=== PATIENT | female | born 1980 | race Asian ===

== ENCOUNTER 2016-05-24 08:29 | Inpatient (IN) | payer OTHER ==
[~2016-05-24] VITALS: Ht 160 cm; Wt 68.3 kg
[2016-05-24] MEDS ORDERED: LACTATED RINGERS 1,000 ML IV SCH ×2 (10:14→10:20)
[2016-05-24] MEDS ORDERED: OXYTOCIN 30U/ 0.9% NaCL 500ML 500 ML IV SCH (10:14)
[2016-05-24] MEDS ORDERED: METOCLOPRAMIDE 5 MG/ML, 2ML IV ONE (10:30)
[2016-05-24] MEDS ORDERED: LACTATED RINGERS 1,000 ML IVBOLUS ONE (10:30)
[2016-05-24] MEDS ORDERED: SODIUM CITRATE/CITRIC ACID 30 ML UDC PO ONE (10:30)
[2016-05-24] MEDS ORDERED: PLEASE ENTER HEIGHT AND WEIGHT MC SCH (10:30)
[2016-05-24 10:43] VITALS: BP 111/71
[2016-05-24 10:44] LABS: HEMOGLOBIN 12.1 g/dL (11.7-16.4)
[2016-05-24] MEDS ORDERED: CALC-123 PO (10:53)
[2016-05-24] MEDS ORDERED: FERR325T16 PO (10:53)
[2016-05-24] MEDS ORDERED: PREN1TAB60 PO (10:53)
[2016-05-24] MEDS ORDERED: LEVO50TA5 PO (10:53)
[2016-05-24] MEDS ORDERED: GLYB5TAB3 PO (10:53)
[2016-05-24] MEDS ORDERED: NEWBORN KIT ONE (11:14)
[2016-05-24] MEDS ORDERED: SODIUM CITRATE/CITRIC ACID 30 ML UDC ONE (11:14)
[2016-05-24] MEDS ORDERED: METOCLOPRAMIDE 5 MG/ML, 2ML ONE ×2 (11:14→12:10)
[2016-05-24] MEDS ORDERED: OXYTOCIN 30U/ 0.9% NaCL 500ML 500 ML ONE (11:15)
[2016-05-24] MEDS ORDERED: FENTANYL PF 100 MCG/2ML ONE (11:40)
[2016-05-24] MEDS ORDERED: EPHEDRINE 50 MG/ML, 1ML IVPush PRN (12:00)
[2016-05-24] MEDS ORDERED: MIDAZOLAM 1 MG/ML, 2ML IV PRN (12:00)
[2016-05-24] MEDS ORDERED: ONDANSETRON 2MG/ML, 2ML IVPush PRN (12:00)
[2016-05-24] MEDS ORDERED: D5%-LACTATED RINGERS 1,000 ML IV SCH (12:00)
[2016-05-24] MEDS ORDERED: MEPERIDINE/PF 25MG/0.5ML IVPush PRN (12:00)
[2016-05-24] MEDS ORDERED: ALBUTEROL SULFATE 2.5 MG/3 ML NPPB PRN (12:00)
[2016-05-24] MEDS ORDERED: FENTANYL PF 100 MCG/2ML IV PRN (12:00)
[2016-05-24] MEDS ORDERED: HYDROcodone/APAP 7.5-325MG/15ML UDC PO PRN (12:00)
[2016-05-24] MEDS ORDERED: PROMETHAZINE 25 MG/ML, 1ML IV PRN (12:00)
[2016-05-24] MEDS ORDERED: OXYcodone 5 MG/5 ML ORAL.SOL UDC PO PRN (12:00)
[2016-05-24] MEDS: OXYTOCIN 30U/ 0.9% NaCL 500ML 500 ML IV SCH ×2 (12:07→22:07)
[2016-05-24] MEDS: LACTATED RINGERS 1,000 ML IV SCH ×4 (12:07→23:25)
[2016-05-24] MEDS ORDERED: DEXAMETHASONE 4 MG/ML, 1ML ONE (12:10)
[2016-05-24] MEDS ORDERED: ONDANSETRON 2MG/ML, 2ML ONE (12:10)
[2016-05-24] MEDS ORDERED: KETOROLAC 30 MG/1 ML ONE (12:10)
[2016-05-24] MEDS ORDERED: CEFAZOLIN 1,000 MG ONE (12:10)
[2016-05-24] MEDS ORDERED: EPHEDRINE 50 MG/ML, 1ML ONE (12:10)
[2016-05-24] MEDS ORDERED: MEPERIDINE/PF 25MG/0.5ML IM PRN (12:30)
[2016-05-24] MEDS ORDERED: CALCIUM CARBONATE 500 MG TAB.CHEW PO PRN (12:30)
[2016-05-24] MEDS ORDERED: OXYcodone IR 5MG TABLET PO PRN ×2 (12:30)
[2016-05-24] MEDS ORDERED: MISOPROSTOL 200 MCG TABLET PR PRN (12:30)
[2016-05-24] MEDS ORDERED: morphine SULFATE 10 MG/ML, 1ML IVPush PRN ×2 (12:30)
[2016-05-24] MEDS ORDERED: OXYcodone/APAP 5/325MG TABLET PO PRN (12:30)
[2016-05-24] MEDS ORDERED: ONDANSETRON 2MG/ML, 2ML IV PRN (12:30)
[2016-05-24] MEDS ORDERED: RHOGAM FROM BLOOD BANK 1 NOTE EA IM/IV ONE (12:30)
[2016-05-24] MEDS ORDERED: MEPERIDINE/PF 50 MG/ML IM PRN (12:30)
[2016-05-24] MEDS ORDERED: OXYcodone/APAP 5/325MG TABLET ONE (14:50)
[2016-05-24] MEDS: OXYcodone/APAP 5/325MG TABLET PO PRN ×2 (14:53→19:58)
[2016-05-24 15:30] VITALS: BP 107/63
[2016-05-24] MEDS: KETOROLAC 30 MG/1 ML IV SCH (18:33)
[2016-05-24 19:31] VITALS: BP 107/60
[2016-05-24] MEDS: DOCUSATE 100 MG CAPSULE PO SCH (21:00)
[2016-05-25] MEDS: KETOROLAC 30 MG/1 ML IV SCH ×3 (00:21→06:30)
[2016-05-25] MEDS: OXYcodone/APAP 5/325MG TABLET PO PRN ×2 (00:21→04:43)
[2016-05-25 00:25] VITALS: BP 103/64
[2016-05-25] MEDS: LACTATED RINGERS 1,000 ML IV SCH ×4 (04:07→18:07)
[2016-05-25] MEDS: OXYTOCIN 30U/ 0.9% NaCL 500ML 500 ML IV SCH (04:14)
[2016-05-25 07:56] VITALS: BP 95/65
[2016-05-25] MEDS: DOCUSATE 100 MG CAPSULE PO SCH ×2 (09:22→21:55)
[2016-05-25] MEDS: PRENATAL VIT/IRON/FA 1 EACH TABLET PO SCH (09:22)
[2016-05-25] MEDS: OXYcodone/APAP 10/325MG TABLET PO PRN ×3 (10:50→21:55)
[2016-05-25 11:47] VITALS: BP 94/59
[2016-05-25] MEDS: IBUPROFEN 600 MG TABLET PO PRN ×2 (15:49→21:55)
[2016-05-26] MEDS ORDERED: OXYC-302 PO (07:15)
[2016-05-26] MEDS ORDERED: DOCU-30 PO (07:16)
[2016-05-26] MEDS ORDERED: IBUP800T PO (07:16)
[2016-05-26] MEDS: IBUPROFEN 600 MG TABLET PO PRN (07:25)
[2016-05-26] MEDS: DOCUSATE 100 MG CAPSULE PO SCH (07:25)
[2016-05-26] MEDS: OXYcodone/APAP 10/325MG TABLET PO PRN ×2 (07:25→12:10)
[2016-05-26] MEDS: PRENATAL VIT/IRON/FA 1 EACH TABLET PO SCH (07:25)
[2016-05-26 07:35] VITALS: BP 105/60
== END 2016-05-26 13:10 | disposition home or self-care (01) | DRG 766 ==
LOC: LDIP 09:51 → 2NW 15:29
PROVIDERS: ADMIT Obstetrics & Gynecology; ATTEND Obstetrics & Gynecology
PROC: 10D00Z1 Extraction of Products of Conception, Low, Open Approach (ICD-10-PCS; principal; 2016-05-24)
PROC: 3E0334Z Introduction of Serum, Toxoid and Vaccine into Peripheral Vein, Percutaneous Approach (ICD-10-PCS; 2016-05-25)
DX: O34.211 Maternal care for low transverse scar from previous cesarean delivery (principal); O24.425 Gestational diabetes mellitus in childbirth, controlled by oral hypoglycemic drugs; O99.284 Endocrine, nutritional and metabolic diseases complicating childbirth; O36.63X0 Maternal care for excessive fetal growth, third trimester, not applicable or unspecified; O26.893 Other specified pregnancy related conditions, third trimester; E55.9 Vitamin D deficiency, unspecified; E03.9 Hypothyroidism, unspecified; Z67.31 Type AB blood, Rh negative; Z37.0 Single live birth; Z79.899 Other long term (current) drug therapy; Z3A.39 39 weeks gestation of pregnancy
CPT/HCPCS: 36415; 82962; 85025; 85461; 86850; 86900; J0690; J1100; J1885; J2405; J2790; J3010; J2590; J2765; J7120; J7121